=== PATIENT | female | born 2000 | race Two or more races ===

== ENCOUNTER 2019-10-26 10:05 | Emergency (ER) | payer OTHER ==
[~2019-10-26] VITALS: Ht 160 cm; Wt 90.7 kg
[2019-10-26] MEDS ORDERED: PROZAC20 MG PO (10:16)
[2019-10-26] MEDS ORDERED: CLONAZEPAM0.5 M1 PO (10:16)
[2019-10-26] MEDS ORDERED: KETO10TA2 PO (16:28)
== END 2019-10-26 16:48 | disposition home or self-care (01) ==
LOC: ER 10:05
DX: N91.0 Primary amenorrhea (principal); R10.2 Pelvic and perineal pain

== ENCOUNTER 2019-12-11 15:56 | Emergency (ER) | payer OTHER ==
[~2019-12-11] VITALS: Ht 157.5 cm; Wt 90.7 kg
[~2019-12-11 15:56] MED LIST: CLONAZEPAM0.5 M1 PO; KETO10TA2 PO; PROZAC20 MG PO
== END 2019-12-11 18:29 | disposition home or self-care (01) ==
LOC: ER 15:56
DX: S20.01XA Contusion of right breast, initial encounter (principal); W55.12XA Struck by horse, initial encounter; Y93.89 Activity, other specified; Y92.89 Other specified places as the place of occurrence of the external cause; Y99.8 Other external cause status

== ENCOUNTER 2021-09-25 04:03 | Emergency (ER) | payer OTHER ==
[~2021-09-25] VITALS: Ht 157.5 cm; Wt 103.4 kg
[~2021-09-25 04:03] MED LIST changes: +MONISTAT 324 GM VAG; +ZITHROMAX500 MG PO; +ZOFRAN8 MG PO
[2021-09-25] MEDS ORDERED: PRENA1 CHEW TA1.4 MG (04:13)
== END 2021-09-25 12:30 | disposition home or self-care (01) ==
LOC: ER 04:03
DX: R10.13 Epigastric pain (principal); O26.891 Other specified pregnancy related conditions, first trimester

== ENCOUNTER 2022-02-15 13:00 | Inpatient (IN) | payer OTHER ==
[~2022-02-15] VITALS: Ht 157.5 cm; Wt 105.2 kg
[~2022-02-15 13:00] MED LIST changes: +PRENA1 CHEW TA1.4 MG
[2022-02-22] MEDS ORDERED: CEPHALEXIN500 MG PO (07:04)
== END 2022-02-22 13:41 | disposition home or self-care (01) | DRG 807 ==
LOC: OB/GYN 02-19 11:59 → LDR 02-19 11:59 → OB/GYN 02-20 12:57 → LDR 02-24 13:00
PROVIDERS: ADMIT Specialist; ATTEND Specialist
PROC: 4A1HXCZ Monitoring of Products of Conception, Cardiac Rate, External Approach (ICD-10-PCS; 2022-02-19)
PROC: 10E0XZZ Delivery of Products of Conception, External Approach (ICD-10-PCS; principal; 2022-02-20)
PROC: 0HQ9XZZ Repair Perineum Skin, External Approach (ICD-10-PCS; 2022-02-20)
PROC: 0UQMXZZ Repair Vulva, External Approach (ICD-10-PCS; 2022-02-20)
DX: O70.0 First degree perineal laceration during delivery (principal); O71.82 Other specified trauma to perineum and vulva; Z37.0 Single live birth; Z3A.39 39 weeks gestation of pregnancy

== ENCOUNTER 2022-02-19 07:12 | Outpatient (CLI) | payer OTHER ==
[~2022-02-19] VITALS: Ht 157.5 cm; Wt 105.2 kg
== END 2022-02-19 12:00 | disposition still patient (30) ==
LOC: NST 07:12
PROVIDERS: ATTEND Obstetrics & Gynecology
DX: Z34.83 Encounter for supervision of other normal pregnancy, third trimester (principal)